=== PATIENT | female | born 1995 | race African-American/Black ===

== ENCOUNTER 2025-04-03 10:38 | Emergency (ER) | payer BC ==
[~2025-04-03] VITALS: Ht 165.1 cm; Wt 68.0 kg
[2025-04-03 11:05] VITALS: TEMP 97.9
[2025-04-03 11:38] LABS: BASOPHILS % 0.5 % (0.0-1.0); EOSINOPHILS % 2.3 % (0.0-6.0); LYMPHOCYTES % 46.1 % (18.0-39.1); MONOCYTES % 7.3 % (4.4-11.3); NEUTROPHILS % 43.8 % (38.7-80.0); RED CELL DISTRIBUTION WIDTH 14.6 % (11.7-14.4)
[2025-04-03 11:58] LABS: INR 1.14
[2025-04-03 12:04] LABS: EST GLOMERULAR FILTRATION RATE 113 ML/MIN (>=60)
[2025-04-03] MEDS: SODIUM CHLORIDE 0.9% 1000ML 1,000 ML IV STA (12:04)
[2025-04-03] MEDS: KETOROLAC TROMETHAMINE 30 MG/ML VIAL IV STA (13:32)
[2025-04-03 13:45] VITALS: PULSE 75; RESP 16; O2SAT 100
== END 2025-04-03 13:46 | disposition home or self-care (01) ==
LOC: ER 11:13
DX: R20.0 Anesthesia of skin (principal); R07.89 Other chest pain; M79.602 Pain in left arm; F17.210 Nicotine dependence, cigarettes, uncomplicated
CPT/HCPCS: 36415; 71045; 80053; 84484; 84702; 85025; 85379; 85610; 85730; 93005; 99283; J7030; J1885